=== PATIENT | female | born 1975 | race Hispanic/Latino ===

== ENCOUNTER 2022-08-26 09:05 | Day surgery (SDC) | payer BC ==
[2022-08-22 10:40] VITALS: BMI 55.6
[2022-08-26] MEDS ORDERED: PROPOFOL 0 ML ONE (12:07)
[2022-08-26] MEDS ORDERED: Lidocaine 1% PF 5 ML VIAL ONE (12:08)
[2022-08-26] MEDS ORDERED: PROPOFOL 20 ML ONE ×2 (12:15→12:33)
== END 2022-08-26 13:05 | disposition home or self-care (01) ==
LOC: CSHSDC 09:05
PROVIDERS: ATTEND Internal Medicine Gastroenterology
PROC: 0DBN8ZZ Excision of Sigmoid Colon, Via Natural or Artificial Opening Endoscopic (ICD-10-PCS; principal; 2022-08-26)
DX: Z12.11 Encounter for screening for malignant neoplasm of colon (principal); K63.5 Polyp of colon; K64.9 Unspecified hemorrhoids; K21.9 Gastro-esophageal reflux disease without esophagitis; E66.9 Obesity, unspecified; E55.9 Vitamin D deficiency, unspecified; Z90.710 Acquired absence of both cervix and uterus; Z87.891 Personal history of nicotine dependence; Z68.43 Body mass index [BMI] 50.0-59.9, adult; Z79.899 Other long term (current) drug therapy
CPT/HCPCS: 88305; J2704